=== PATIENT | male | born 1950 | race Caucasian/White ===

== ENCOUNTER 2019-12-07 12:39 | Outpatient (CLI) | payer MEDICARE, SELFPAY ==
--- NOTE | 2019-12-13 09:28 | WPDPFTINT ---
PFT Interpretation PFT Interpretation: DOS: 12/07/2019 REQUESTING: Ernst Jain REASON FOR TESTING: Shortness of breath PULMONARY FUNCTION TESTS The results are reliable and reproducible. He asked not to have albuterol as a bronchodilator due to negative side effects with his pacemaker/defibrillator. Spirometry: FEV1 is 88%, 2.73 L, normal. FVC is 81%, normal. FEV1% is normal. No bronchodilator was given per patient's request. Lung volumes: TLC 105%, normal. RV is increased at 131% consistent with mild air trapping. Airway resistance is 127%. Diffusion: DLCO is 1122%, normal. Flow volume loop: Nonspecific; inspiratory loop ends prematurely. IMPRESSION: Normal spirometry, mild air trapping, normal diffusion. No bronchodilator was given at the patient's request. Liseth Back MD
== END 2019-12-07 12:40 | disposition home or self-care (01) ==
PROVIDERS: PCP Family Medicine; Visit Provider Internal Medicine Critical Care Medicine
DX: R06.02 Shortness of breath (principal)
CPT/HCPCS: 94375; 94726; 94729

== ENCOUNTER 2020-01-09 12:50 | Outpatient (CLI) | payer MEDICARE, SELFPAY ==
--- NOTE | 2020-01-11 11:58 | WPDPFTINT ---
PFT Interpretation PFT Interpretation: DOS: 01/09/2020 REQUESTING: Ernst Jain REASON FOR TESTING: Asthma METHACHOLINE CHALLENGE This test was conducted per ATS guidelines. A previous study on 12/05/2019 showed normal spirometry, FEV1 88%. The patient was exposed to sequentially increasing doses of methacholine in the usual manner. Level 1 - saline Level 2 - 0.025 mg Level 3 - 0.25 mg Level 4 - 2.5 mg Level 5 - 10 mg Level 6 - 25 mg The test was stopped after the 6th and final dose of methacholine, 25 mg. There was not a decrease of 20% in the FEV1. There was a 26% decrease in the LMA12-46% after the final dose. This drop is not considered significant. Flows returned to normal after bronchodilator was administered. IMPRESSION: This is a negative methacholine challenge. The patient did not have a significant drop in FEV1 with testing. The best use for a methacholine challenge is to rule out asthma. Clinical correlation is advised. Liseth Back MD
== END 2020-01-09 12:51 | disposition home or self-care (01) ==
PROVIDERS: PCP Family Medicine; Visit Provider Family Medicine
DX: R05 Cough (principal)
CPT/HCPCS: 94070; J7674

== ENCOUNTER → 2021-01-14 17:43 | Outpatient (CLI) | payer MEDICARE, SELFPAY ==
--- NOTE | ~2021-01-14 | XR_ITS ---
XR lumbar spine 2-3V DATE: 01/14/2021 18:20 INDICATION: Back pain, radiculopathy TECHNIQUE: AP, lateral, coned lateral lumbosacral views COMPARISON: 03/18/2016 lumbar spine 05/06/2016 MR lumbar spine FINDINGS: Diffuse osteopenia. Diffuse idiopathic skeletal hyperostosis of the lower thoracic and upper lumbar spine. Moderate degenerative disease at L1-2 and mild degenerative disc disease of the remaining lumbar and lumbosacral levels. There is prominent degenerative change at the apophyseal joints at L4-5 and L5-S1, with associated gr alber 1 anterolisthesis at L4-5. No fracture or bone destruction. The lower thoracic and lumbar pedicles are intact. Sacroiliac joints are intact. IMPRESSION: Diffuse osteopenia Mild to moderate degenerative disc disease Prominent degenerative change at the lower lumbar and lumbosacral apophyseal joints with associated g rade 1 anterolisthesis at L4-5 Reviewed, dictated and finalized at location A. IMPRESSION: Diffuse osteopenia Mild to moderate degenerative disc disease Prominent degenerative change at the lower lumbar and lumbosacral apophyseal letty ints with associated grade 1 anterolisthesis at L4-5
== END ==
PROVIDERS: PCP Family Medicine; Visit Provider Family Medicine
DX: M54.16 Radiculopathy, lumbar region (principal); M85.88 Other specified disorders of bone density and structure, other site; M51.36 Other intervertebral disc degeneration, lumbar region; M43.16 Spondylolisthesis, lumbar region
CPT/HCPCS: 72100

== ENCOUNTER 2021-03-21 12:35 | Outpatient (CLI) | payer MEDICARE, SELFPAY ==
--- NOTE | ~2021-03-21 | US_ITS ---
EXAMINATION: US carotid duplex BI DATE: 03/21/2021 13:24 INDICATION: Carotid stenosis TECHNIQUE: Grayscale, color Doppler, and pulsed Doppler images of the cervical carotid arteries were obtained. The degree of vessel stenosis is placed in one of the following categories: normal, <50%, 5 0-69%, >=70% but less than near-occlusion, near-occlusion, or total occlusion. Note that percent sten osis relative to normal distal artery lumen diameter is indirectly measured from velocity measurement s as described by Matthew, et al. Radiology 2003; 229:340-346. Notes: Normal: Peak systolic velocity <125 centimeters/sec and no plaque <50%. Peak systolic velocity <125 ( EDV <40; ICA/CCA PSV ratio <2.0; used these factors only a tandem lesions or low cardiac output or co ntralateral disease) 50-69 %: PSV 125-230 (EDV 40-100; ratio 2-4) >= 70% but less than near occlusion: PSV greater than 230 (EDV > 100; ratio> 4.0) Near Occlusion: PSV that is variable; markedly narrowed lumen Occlusion: Absent flow on color/spectral Doppler and no lumen on jones scale. COMPARISON: None. FINDINGS: RIGHT: The right common carotid artery (CCA) peak systolic velocity (PSV) is 82 cm/s. The right internal car otid artery (ICA) PSV is 93 cm/s. The right ICA end-diastolic velocity (EDV) is 10 cm/s. The right IC A/CCA PSV ratio is 1.1. The external carotid artery (ECA) PSV is 97 cm/s. There is antegrade flow in the right vertebral artery. LEFT: The left CCA PSV is 76 cm/s. The left ICA PSV is 89 cm/s. The left ICA EDV is 26 cm/s. The left ICA/C CA PSV ratio is 1.2. The ECA PSV is 122 cm/s. There is antegrade flow in the left vertebral artery. IMPRESSION: 1. Less than 50% stenosis in the right internal carotid artery by sonographic criteria. 2. Less than 50% stenosis in the left internal carotid artery by sonographic criteria. Reviewed, dictated and finalized at location B. IMPRESSION: 1. Less than 50% stenosis in the right internal carotid artery by sonographic halley mckinley. 2. Less than 50% stenosis in the left internal carotid artery by sonographic cholo woody.
== END 2021-03-21 12:36 | disposition home or self-care (01) ==
LOC: ANHIMG 12:37
PROVIDERS: PCP Family Medicine; Visit Provider Family Medicine
DX: I65.23 Occlusion and stenosis of bilateral carotid arteries (principal)
CPT/HCPCS: 93880

== ENCOUNTER → 2021-04-26 09:05 | Outpatient (CLI) | payer MEDICARE, SELFPAY ==
[2021-04-26 17:10] LABS: SARS-CoV-2 RNA PCR Negative
== END ==
PROVIDERS: PCP Family Medicine; Visit Provider Family Medicine
DX: R68.89 Other general symptoms and signs (principal); Z20.822 Contact with and (suspected) exposure to COVID-19
CPT/HCPCS: C9803; U0003; U0005

== ENCOUNTER → 2022-09-09 15:58 | Outpatient (CLI) | payer MEDICARE, SELFPAY ==
--- NOTE | ~2022-09-09 | XR_ITS ---
EXAM: XR wrist LT min 3V DATE: 09/09/2022 16:15 HISTORY: no injury wrist pain for 1 week . COMPARISON: None available. FINDINGS: Normal mineralization. No fracture or dislocation. No lytic or blastic lesion. Scattered m ild degenerative changes, typical of osteoarthritis, most evident at the radial carpal joint, triscap he joint and trapezium metacarpal joint. No erosion or periosteal change. Vascular calcifications. 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 Reviewed, dictated and finalized at location K.
== END ==
PROVIDERS: PCP Family Medicine; Visit Provider Family Medicine
DX: M19.032 Primary osteoarthritis, left wrist (principal)
CPT/HCPCS: 73110

== ENCOUNTER 2022-12-12 17:30 | Emergency (ER) | payer MEDICARE, SELFPAY ==
--- NOTE | ~2022-12-12 | CT_ITS ---
EXAMINATION: CT brain wo con DATE: 12/12/2022 17:39 INDICATION: Slurred speech. TECHNIQUE: Computed tomography (CT) of the head was performed without intravenous contrast. The mA wa s adjusted according to patient size. Iterative reconstruction technique was employed. The dose-lengt h product was 681.00 mGy-cm. COMPARISON: None FINDINGS: There is an old infarct in right frontal lobe. There are old infarcts involving the bilater al thalami and basal ganglia. There are scattered areas of low attenuation in the cerebral white briana er. There is no intracranial hemorrhage, acute infarction, or abnormal intracranial mass lesion. The ventricles are normal in size. There is mild mucosal thickening in the paranasal sinuses. There are l ikely changes of ocular lens replacement surgeries. The mastoid air cells are normal. IMPRESSION: 1. Old infarcts involving the right frontal lobe and bilateral thalami and basal ganglia. I called th is result to Dr. Horan. 2. Mild nonspecific cerebral white matter disease, which likely represents chronic small vessel ische max disease. Reviewed, dictated and finalized at location E. IMPRESSION: 1. Old infarcts involving the right frontal lobe and bilateral thalami and basa l ganglia. I called this result to Dr. Horan. 2. Mild nonspecific cerebral white matter disease, which likely represents feeder operator tootie small vessel ischemic disease.
--- NOTE | ~2022-12-12 | XR_ITS ---
EXAMINATION: XR chest 1V portable DATE: 12/12/2022 18:07 INDICATION: Cerebrovascular accident. Slurred speech. TECHNIQUE: A single frontal view of the chest was obtained. COMPARISON: Chest 2 views 06/08/2019 FINDINGS: There is no pneumonia, pleural effusion, or pneumothorax. Cardiomegaly is noted. There is a left chest pacer with leads in right atrium, right ventricle, and coronary sinus. IMPRESSION: 1. Cardiomegaly. Reviewed, dictated and finalized at location E. IMPRESSION: 1. Cardiomegaly.
--- NOTE | ~2022-12-12 | CT_ITS ---
EXAMINATION: CTA brain carotid DATE: 12/12/2022 19:52 INDICATION: Transient ischemic attack. TECHNIQUE: Computed tomographic angiography (CTA) of the head was performed with 100 mL Omnipaque-350 intravenous contrast. CTA of the neck was performed with intravenous contrast. Automated exposure co ntrol and iterative reconstruction technique were employed. The dose-length product was 1264.66 mGy-c m. Maximum intensity projection and volume rendered 3D-reconstructions were created by the technologi st on a separate workstation. COMPARISON: Head CT 12/12/2022 FINDINGS: HEAD CTA: There are old infarcts involving the right frontal lobe and bilateral thalami and basal omkar glia. There are scattered areas of low attenuation in the cerebral white matter. There is no intracra nial hemorrhage, acute infarction, or abnormal intracranial mass lesion. The ventricles are normal in size. There are likely changes of ocular lens replacement surgeries. There is mucosal thickening in the nasal sinuses. The mastoid air cells are normal. Right vertebral artery is dominant. There is no significant stenosis of basilar artery. There is severe stenosis of left posterior cerebral artery at the junction of the P2 and P3 segments. The posterior communicating arteries are normal. There is no significant stenosis of the intracranial internal carotid arteries or anterior or middle cerebral ar teries. Anterior communicating artery is normal. There is no aneurysm. NECK CTA: There are no pathologically enlarged lymph nodes. There is no significant stenosis of the v ertebral arteries. There is plaque in the proximal right internal carotid artery. There are likely ch anges of left carotid endarterectomy. There is 0% stenosis of the proximal right internal carotid art maik relative to normal distal artery lumen diameter (NASCET criteria). There is 0% stenosis of the pr oximal left internal carotid artery relative to normal distal artery lumen diameter. There is moderat e cervical spondylosis IMPRESSION: 1. Old infarcts involving the right frontal lobe and bilateral thalami and basal ganglia. 2. Mild nonspecific cerebral white matter disease, which likely represents chronic small vessel ische max disease. 3. Severe stenosis of left posterior cerebral artery at the junction of the P2 and P3 segments. 4. 0% stenosis of the proximal internal carotid arteries relative to normal distal artery lumen diame ters (NASCET criteria). Reviewed, dictated and finalized at location E. IMPRESSION: 1. Old infarcts involving the right frontal lobe and bilateral thalami and basa l ganglia. 2. Mild nonspecific cerebral white matter disease, which likely represents animal care giver tootie small vessel ischemic disease. 3. Severe stenosis of left posterior cerebral artery at the junction of the P2 and P3 segments. 4. 0% stenosis of the proximal internal carotid arteries relative to normal dis evelin artery lumen diameters (NASCET criteria).
--- NOTE | 2022-12-12 17:32 | ECG_ITS ---
Measurements Intervals [place] Rate: 70 P: [place]: 0 QRS: -81 QRSD: 149 T: 81 QT: 434 QTc: 469 Interpretive Statements ELECTRONIC VENTRICULAR PACEMAKER NO FURTHER INTERPRETATION IS POSSIBLE ATYPICAL ECG NO PREVIOUS ECG AVAILABLE FOR COMPARISON Electronically Signed On 12-12-2022 20:40:01 CDT by Pa Liu D.O.
--- NOTE | 2022-12-12 17:45 | ECG_ITS ---
Measurements Intervals [place] Rate: 70 P: [place]: 0 QRS: -81 QRSD: 152 T: 85 QT: 442 QTc: 478 Interpretive Statements ELECTRONIC VENTRICULAR PACEMAKER NO FURTHER INTERPRETATION IS POSSIBLE ATYPICAL ECG NO PREVIOUS ECG AVAILABLE FOR COMPARISON Electronically Signed On 12-15-2022 13:00:13 CDT by Pa Liu D.O.
[2022-12-12 17:50] LABS: Basophils Percent Auto 0.3 % (0.2-1.2); Eosinophils Absolute Auto 0.1 K/mm3 (0-0.3); Eosinophils Percent Auto 0.7 % (0-4.4); Hematocrit 42.5 % (42.0-52.0); Hemoglobin 13.5 g/dL (14.0-18.0); Immature Granulocyte Absolute 0.03 K/mm3 (0.00-0.031); Immature Granulocyte Percent A 0.3 % (0-0.5); Lymphocytes Absolute Auto 1.38 K/mm3 (0.9-3.2); Lymphocytes Percent Auto 14.5 % (18.3-44.2); Mean Corpuscular HGB Conc 31.8 g/dl (32-36); Mean Platelet Volume 9.6 fl (7.4-10.4); Monocytes Absolute Auto 0.6 K/mm3 (0.1-0.6); Monocytes Percent Auto 5.8 % (2.6-8.5); Neutrophils Absolute Auto 7.5 K/mm3 (1.3-6.7); Neutrophils Percent Auto 78.4 % (45.5-73.1); Platelet Count Result 195 k/mm3 (150-375); Red Blood Count 4.83 M/mm3 (4.6-6.20); Red Cell Distribution Width 14.7 % (11.5-14.5); White Blood Count 9.5 K/mm3 (4.5-10.0)
[2022-12-12 18:05] LABS: Alanine Aminotransferase 20 U/L (6-50); Albumin Level 4.2 g/dL (3.5-5.1); Alkaline Phosphatase 52 U/L (38-126); Anion Gap 7 mmol/L (8-16); Aspartate Amino Transferase 23 U/L (17-59); Bilirubin,Total 0.7 mg/dL (0.2-1.3); Blood Urea Nitrogen 21 mg/dL (9-20); Calcium 9.1 mg/dL (8.4-10.2); Carbon Dioxide 29 mmol/L (22-30); Chloride 103 mmol/L (98-107); Estimated CRCL calculation 65 ml/min; Estimated Glomerular Filt Rate > 60; Glucose 118 mg/dL (65-110); Potassium 4.5 mmol/L (3.4-5.0); Sodium 139 mmol/L (137-145)
[2022-12-12 18:07] LABS: INR 1.2; Prothrombin Time 15.4 Seconds (11.1-14.7)
[2022-12-12 18:08] LABS: Partial Thromboplastin Time 30.7 SECONDS (22.3-36.8)
[2022-12-12 18:17] LABS: Troponin I < 0.012 ng/mL (0.000-0.034)
[2022-12-12 19:09] VITALS: BP 142/67; PULSE 70; RESP 19; O2SAT 97
--- NOTE | 2022-12-12 20:24 | ED.NEUROSD ---
HPI - Neuro Symptoms/Deficit General Chief Complaint: Suspected CVA Stated Complaint: slurred speech Time Seen by Provider: 12/12/22 18:24 History of Present Illness HPI Narrative: 72-year-old male presented the emergency department for evaluation for 30 minutes of garbled speech. Patient does have a prior history of CVA approximately 20 years ago and did have multiple TIAs between December and March 21. Patient reports he had a carotid endarterectomy at [facility] and April 2021. Patient does take aspirin and Eliquis and reports he has been compliant with his medications. Patient states that the symptoms today lasted approximately 30 minutes and then resolved. Patient reports some associated lightheaded and dizziness but denied any associated numbness or weakness. Patient reports he is back to his baseline. Related Data Home Medications Medication Instructions Recorded Confirmed aspirin 81 mg tablet,delayed 81 mg PO DAILY 06/08/19 09/24/22 release (Aspir-) metoprolol succinate 50 mg 75 mg PO DAILY 06/08/19 09/24/22 tablet,extended release 24 hr nitroglycerin 0.4 mg sublingual 0.4 mg sublingual Q5M PRN 06/08/19 09/24/22 tablet vitamin B complex (B 1 tablet PO DAILY 06/08/19 09/24/22 Complex-Vitamin B12 tablet) sacubitril 24 mg-valsartan 26 mg 1 tablet PO BID 02/27/20 09/24/22 tablet (Entresto) cetirizine 10 mg tablet (Zyrtec) 10 mg PO QHS 11/07/20 09/24/22 clindamycin phosphate 1 % topical 1 applic topical DAILY 09/24/22 09/24/22 solution ketoconazole 2 % shampoo 1 applic topical 3XW 09/24/22 09/24/22 omeprazole 20 mg capsule,delayed 20 mg PO DAILY 09/24/22 09/24/22 release vibegron 75 mg tablet (Gemtesa) 75 mg PO DAILY 09/24/22 09/24/22 Allergies Allergy/AdvReac Type Severity Reaction Status Date / Time FLECAINIDE ACETATE (Generic Allergy Unknown Unknown Uncoded 12/10/22 11:40 Allergy) TABACOR BETA HARVINDER Allergy Unknown Unknown Uncoded 12/10/22 11:40 Review of Systems Review of Systems: All systems reviewed & are unremarkable except as noted in HPI and below PMFSH Past Medical History Medical History BPH w/o urinary obs/LUTS CAD in [place] artery Cataract Chronic atrial fibrillation Chronic congestive heart failure Chronic low back pain without sciatica Dyslipidemia Essential (primary) hypertension GERD (gastroesophageal reflux disease) History of stroke 04/2001 and 12/2020 Hx of erectile dysfunction Hx of gout Hypogonadism in male IDDM (insulin dependent diabetes mellitus) Nocturia OAB (overactive bladder) Recurrent UTI (urinary tract infection) 10/08/2017 Rhinitis Seasonal allergies 02/09/19 Stroke 04/2001 and 12/2020 Surgical History Surgical History H/O discectomy L4-L5 09/2016 H/O removal of cyst (~10/2020) History of appendectomy age 3 - 1956 History of coronary artery stent placement 08/2017 History of intraocular lens implant 2004 - right, 2006 - left Hx of cataract surgery 12/2006 & 11/10/03 Family History Family History Mother Family history of coronary artery disease Social History Social History Smoking status: Never smoker Second hand tobacco smoke exposure: No Alcohol intake: current Alcohol use details: consumes 3 beers/wine rarely Substance use: never Substance use type: does not use Lack of Transportation: No Lack of Food: Never True Current Housing: I Have Housing Concerned About Future Housing: No Difficulty Paying Gas/Electric Bills: No Difficulty Paying for Meds: No Currently Unemployed: No Education: Associate Degree Difficulty w/ Childcare or Family Care: No Exam Narrative: APPEARANCE: Well appearing, no pain, no distress, well-nourished. HEAD: norm
[2022-12-12 21:14] VITALS: BP 140/94; PULSE 70; RESP 16; O2SAT 98
== END 2022-12-12 21:14 | disposition home or self-care (01) ==
PROVIDERS: Emergency Provider Emergency Medicine; PCP Family Medicine
DX: G45.9 Transient cerebral ischemic attack, unspecified (principal); I25.10 Atherosclerotic heart disease of native coronary artery without angina pectoris; I48.20 Chronic atrial fibrillation, unspecified; E78.5 Hyperlipidemia, unspecified; I10 Essential (primary) hypertension; Z86.73 Personal history of transient ischemic attack (TIA), and cerebral infarction without residual deficits
CPT/HCPCS: 36415; 70450; 70496; 70498; 71045; 80053; 84484; 85025; 85610; 85730; 93005; 99284; Q9967

== ENCOUNTER 2023-08-19 14:43 | Outpatient (CLI) | payer MEDICARE, SELFPAY ==
--- NOTE | ~2023-08-19 | XR_ITS ---
EXAMINATION: XR lumbar spine min 4V DATE: 08/19/2023 15:11 INDICATION: Low back pain TECHNIQUE: Anteroposterior, lateral, and bilateral oblique views of the lumbar spine, and cone-down l ateral view of the lumbosacral junction were obtained. COMPARISON: 01/14/2021 FINDINGS: There are 4 mm of anterolisthesis of L4 on L5. The vertebral body heights are maintained. T here is no fracture. There is unchanged moderate loss of intervertebral disc space height throughout the lumbar spine. There is severe facet joint osteoarthritis of the mid and lower lumbar spine. IMPRESSION: 1. Moderate lumbar spondylosis without acute findings or significant interval change. Reviewed, dictated and finalized at location F. IMPRESSION: 1. Moderate lumbar spondylosis without acute findings or significant interval halley dorado.
== END 2023-08-19 14:44 ==
PROVIDERS: PCP Family Medicine; Visit Provider Family Medicine
DX: M79.661 Pain in right lower leg (principal); M47.896 Other spondylosis, lumbar region
CPT/HCPCS: 72110

== ENCOUNTER 2023-08-27 13:51 | Outpatient (CLI) | payer MEDICARE, SELFPAY ==
--- NOTE | ~2023-08-27 | XR_ITS ---
EXAM: XR hip RT 2V w AP pelvis DATE: 08/27/2023 14:07 HISTORY: M79.651 - Pain in right HIP, RADIATES TO GROIN. NKI . COMPARISON: None available. FINDINGS: Normal mineralization. No fracture or dislocation. No lytic or blastic lesion. Lumbar dege nerative disc disease. Mild bilateral superior hip joint space narrowing. Heterotopic bone adjacent t o the left greater trochanter. Mild scattered pelvic and hip enthesopathy. No erosion or periosteal c hange. Diffuse vascular calcifications. IMPRESSION: Mild bilateral hip osteoarthritis. Reviewed, dictated and finalized at location K.
== END 2023-08-27 13:52 | disposition home or self-care (01) ==
PROVIDERS: PCP Family Medicine; Visit Provider Family Medicine
DX: M16.0 Bilateral primary osteoarthritis of hip (principal)
CPT/HCPCS: 73502

== ENCOUNTER 2023-09-04 13:53 | Outpatient (CLI) | payer MEDICARE, SELFPAY ==
--- NOTE | ~2023-09-04 | US_ITS ---
EXAMINATION: US venous doppler LE RT DATE: 09/04/2023 14:55 INDICATION: Right lower limb pain TECHNIQUE: Grayscale ultrasound images without and with compression and Doppler ultrasound images of the right lower extremity veins were obtained. COMPARISON: None. FINDINGS: The visualized portions of right common femoral vein, profunda (deep) femoral vein, femoral vein, pop liteal vein, peroneal trunk, posterior tibial veins, peroneal veins, gastrocnemius vein and greater s aphenous vein outflow are patent. IMPRESSION: 1. No deep venous thrombosis in the right lower limb. Reviewed, dictated and finalized at location A.
== END 2023-09-04 13:54 | disposition home or self-care (01) ==
PROVIDERS: PCP Family Medicine; Visit Provider Family Medicine
DX: M79.651 Pain in right thigh (principal); R10.31 Right lower quadrant pain
CPT/HCPCS: 93971

== ENCOUNTER 2024-02-09 12:29 | Emergency (ER) | payer MEDICARE, SELFPAY ==
[2024-02-09] VITALS (11 sets, daily range): BP systolic 109–130; BP diastolic 43–78; PULSE 70–72; RESP 14–24; TEMP 37–39.6; O2SAT 94–100
--- NOTE | ~2024-02-09 | XR_ITS ---
XR chest 1V portable Ordering provider: America Lawler PA-C History: 74 years Male with . ams, weakness UNABLE TO SIT UPRIGHT SLUMPING OVER . Comparison: December 12, 2022 FINDINGS: MEDIASTINUM: The cardiac silhouette is not enlarged. Left tripolar pacemaker. LUNGS: No infiltrates, effusions or pneumothorax. OTHER: No free air under the diaphragm. IMPRESSION: No acute cardiopulmonary pathology Reviewed, dictated and finalized at location A.
--- NOTE | ~2024-02-09 | CT_ITS ---
CT thoracic lumbar w con Ordering provider: America Lawler PA-C History: . post op infection . Comparison: None. Technique: CT thoracic and lumbar spine without contrast. Automated exposure control and iterative r econstruction technique were employed. The dose-length product was 1095.74 mGy-cm. 100 mL Omnipaque 350 was given IV. FINDINGS: VERTEBRAE: Normal height and alignment. No subluxation or visible acute fracture. Degenerative change s of the spine. Postoperative changes in the lumbar spine extending from L2 to L4. DISC SPACES: Well maintained. Facet joint disease at the level of L4-L5. PARASPINOUS SOFT TISSUES: Collection measuring 8.9 x 2.1 x 2.2 cm. is seen posteriorly extending from L1-L2 down to lower L4 more on the right side. Air is also seen in the surgical bed bilaterally whic h may be due to infection or postoperative change. No significant enhancement seen around the collect ion. Clinical correlation and further evaluation advised. IMPRESSION: Postoperative changes in the lumbar area with collection more to the right which may be atelectasis o r postoperative change. Clinical correlation and follow-up advised. Reviewed, dictated and finalized at location A. IMPRESSION: Postoperative changes in the lumbar area with collection more to the right whic h may be atelectasis or postoperative change. Clinical correlation and follow-u p advised.
--- NOTE | 2024-02-09 12:41 | ECG_ITS ---
Test Date: 2024-02-09 13:01:16 Measurements Intervals [place] Rate: 70 P: 0 IA: 0 QRS: -87 QRSD: 141 T: 66 QT: 469 QTc: 507 Interpretive Statements ELECTRONIC VENTRICULAR PACEMAKER BASELINE ARTIFACT- I, III, AVR, AVL, AVF, V1-V3 NO FURTHER INTERPRETATION IS POSSIBLE ATYPICAL ECG No previous ECG available for comparison Electronically Signed On 02-09-2024 13:20:19 CDT by Pa Liu D.O.
--- NOTE | 2024-02-09 12:43 | ED.FEVER ---
HPI - Fever General Chief Complaint: Fever <America Lawler PA-C - Last Filed: 02/09/24 12:51> Stated Complaint: tremors <America Lawler PA-C - Last Filed: 02/09/24 12:51> Time Seen by Provider: 02/09/24 15:24 <America Lawler PA-C - Last Filed: 02/09/24 12:51> Focused HPI: 74-year-old male with history of CAD, TIA, GERD, dyslipidemia, hypertension and recent spinal surgery at [facility] 3 weeks ago presents to the emergency department with his at bedside via EMS from [facility]. Patient's states that she was visiting the patient when he was very tremulous. She contacted the nurse came over and took the patient's vitals and was found to be very tachycardic. They contacted EMS and presented to the ED. The states the patient vomited a few days ago. He is reporting pain to his low back. The states that she knows he has a bedsore to the low back but is unsure if it is infected. Patient denies chest pain or shortness of breath, cough or congestion, dysuria or hematuria. Denies known drainage from the wound. Patient is demented at baseline per . GENERAL: Chronically ill-appearing HEAD: Normocephalic, atraumatic. CHEST: Clear to auscultation. ?No respiratory distress. BACK: Well-healing postoperative incision to the thoracic and lumbar spine with overlying Steri-Strips, no erythema, fluctuation, induration, no purulence. Unable to visualize sacral wound due to positioning in triage HEART: Regular rate and rhythm.? Patient screened in triage and initial orders placed.? ?Additional care and disposition to be based upon?diagnostic testing and treatment. <America Lawler PA-C - Last Filed: 02/09/24 12:51> History of Present Illness HPI Narrative: This patient is a 74-year-old gentleman presents emergency department with chief complaint of not feeling well patient has had some vomiting also has concern for possible fever and infection patient recently had spinal surgery at [facility] 3 weeks ago and was discharged to [facility]. The family reported that there has been a small area of a bedsore that has developed in his sacral region the report that the incision has looked well there is still a single staple left in the wound but no drainage or redness at the site. <Elias Ding MD - Last Filed: 02/09/24 18:23> Related Data Home Medications: Home Medications Medication Instructions Recorded Confirmed aspirin 81 mg tablet,delayed 81 mg PO DAILY 06/08/19 02/04/24 release (Aspir-) metoprolol succinate 50 mg 75 mg PO DAILY 06/08/19 02/04/24 tablet,extended release 24 hr nitroglycerin 0.4 mg sublingual 0.4 mg sublingual Q5M PRN 06/08/19 02/04/24 tablet vitamin B complex (B 1 tablet PO DAILY 06/08/19 02/04/24 Complex-Vitamin B12 tablet) sacubitril 24 mg-valsartan 26 mg 1 tablet PO BID 02/27/20 02/04/24 tablet (Entresto) cetirizine 10 mg tablet (Zyrtec) 10 mg PO QHS 11/07/20 02/04/24 clindamycin phosphate 1 % topical 1 applic topical DAILY 09/24/22 02/04/24 solution ketoconazole 2 % shampoo 1 applic topical 3XW 09/24/22 02/04/24 omeprazole 20 mg capsule,delayed 20 mg PO DAILY 09/24/22 02/04/24 release vibegron 75 mg tablet (Gemtesa) 75 mg PO DAILY 09/24/22 02/04/24 tadalafil 5 mg tablet 5 mg PO DAILY 03/11/23 02/04/24 fluticasone propionate 50 1 spray intranasal DAILY 09/10/23 02/04/24 mcg/actuation nasal spray,suspension (Flonase Allergy Relief) pen needle, diabetic 32 gauge x #1,200 ea 09/10/23 02/04/24 5/32 (BD Meka 2nd Gen Pen Needle) insulin glargine 100 unit/mL (3 40 unit subcut QPM 09/30/23 02/04/24 mL) subcutaneous pen (Lantus Solostar U-100 Insulin) clindamycin phosphate 1 % topical topical PRN 11/25/23 02/04/24 gel finasteride 5 mg tablet mg PO DAILY 11/25/23 02/04/24 metronidazole 1 % topical gel topical DAILY 11/25/23 02/04/24 <America Lawler PA-C - Last Filed: 02/09/24 12:51> Allergies/Adverse Reacti
[2024-02-09 13:26] LABS: Basophils Percent Auto 0.1 % (0.2-1.2); Hematocrit 35.2 % (42.0-52.0); Hemoglobin 10.8 g/dL (14.0-18.0); Immature Granulocyte Absolute 0.02 K/mm3 (0.00-0.031); Immature Granulocyte Percent A 0.3 % (0-0.5); Lymphocytes Absolute Auto 0.23 K/mm3 (0.9-3.2); Lymphocytes Percent Auto 2.9 % (18.3-44.2); Mean Corpuscular HGB Conc 30.7 g/dl (32-36); Mean Corpuscular Hemoglobin 27.6 pg (26-34); Mean Corpuscular Volume 89.8 fl (80-100); Mean Platelet Volume 9.5 fl (7.4-10.4); Monocytes Absolute Auto 0.1 K/mm3 (0.1-0.6); Monocytes Percent Auto 1.6 % (2.6-8.5); Neutrophils Absolute Auto 7.6 K/mm3 (1.3-6.7); Neutrophils Percent Auto 95.1 % (45.5-73.1); Platelet Count Result 256 k/mm3 (150-375); Red Blood Count 3.92 M/mm3 (4.6-6.20); Red Cell Distribution Width 17.2 % (11.5-14.5); White Blood Count 7.9 K/mm3 (4.5-10.0)
[2024-02-09 13:37] LABS: INR 1.7; Prothrombin Time 20.4 Seconds (11.1-14.7)
[2024-02-09 13:44] LABS: Lactic Acid Reflex 7.7 mmol/L (0.7-2.0)
[2024-02-09 13:46] LABS: Albumin Level 3.7 g/dL (3.5-5.1); Alkaline Phosphatase 126 U/L (38-126); Anion Gap 15 mmol/L (4-12); Aspartate Amino Transferase 35 U/L (17-59); Bilirubin,Total 1.4 mg/dL (0.2-1.3); Blood Urea Nitrogen 29 mg/dL (9-20); CRP 7.2 mg/dL (<1.0); Calcium 8.9 mg/dL (8.4-10.2); Carbon Dioxide 21 mmol/L (22-30); Chloride 91 mmol/L (98-107); Estimated Glomerular Filt Rate > 60; Glucose 317 mg/dL (65-110); Lipase 202 U/L (23-300); Potassium 4.6 mmol/L (3.4-5.0); Sodium 127 mmol/L (137-145)
[2024-02-09 13:48] LABS: Anisocytosis 1+; Platelet Estimate Adequate (Adequate); Schistocytes None Seen
[2024-02-09 13:53] LABS: Alanine Aminotransferase 28 U/L (6-50)
[2024-02-09 14:09] LABS: Influenza A QL RT-PCR Negative (Negative); Influenza B QL RT-PCR Negative (Negative); RSV RNA, RT-PCR Negative (Negative); SARS-CoV-2 RNA PCR Positive (Negative)
[2024-02-09 14:21] LABS: Erythrocyte Sedimentation Rate 125 mm/hr (0-20)
[2024-02-09 14:23] LABS: Add Urine Microscopic? YES; Appearance Urine Clear (Clear); Bacteria Urine None Seen /hpf; Bilirubin Urine Negative (Negative); Blood Urine Negative (Negative); Color Urine Dark Yellow (Yellow); Glucose Urine UA 3+ mg/dL (Negative); Ketones Urine Trace mg/dL (Negative); Leukocyte Esterase Ur Negative LEU/UL (Negative); Nitrate Urine Negative (Negative); Protein Urine Trace mg/dL (Negative); RBC Urine 0-2 /hpf (0-2); Specific Grav Ur 1.027 (1.001-1.035); Squamous Epithelial Cell Urine None Seen /hpf (Few); WBC Urine 0-5 /hpf (0-3)
[2024-02-09] MEDS: LACTATED RINGERS 1,000 ML 999 ML IV CONT (14:30)
--- NOTE | 2024-02-09 14:47 | PC.NURSE ---
Family at bedside notified that pt is covid positive. Family given N95 masks.
[2024-02-09] MEDS: SODIUM CHLORIDE 0.9% IV 1,000 ML 999 ML IV CONT ×2 (15:15→16:18)
--- NOTE | 2024-02-09 15:23 | PC.NURSE ---
Charge nurse informed no ED MD has signed up for pt, pt meets Sepsis criteria.
[2024-02-09] MEDS: CEFEPIME 2 GM/NS 50 ML 2 GM/50 ML BAG IVPB (16:16)
[2024-02-09 16:22] LABS: Reflex Lactic Acid Yes or No Add Lactic
[2024-02-09] MEDS: VANCOMYCIN 1,250 MG/NS 250 ML 1,250 MG/250 ML BAG 166.67 MG IVPB (17:16)
[2024-02-09 17:21] LABS: Lactic Acid 2.5 mmol/L (0.7-2.0)
[2024-02-09 17:33] LABS: Beta-Hydroxybutyrate/Acetoacetate 1.32 mmol/L (0.02-0.27)
--- NOTE | 2024-02-09 18:18 | PC.NURSE ---
Attempted report x1 to [facility]. Nurse to call back for report.
--- NOTE | 2024-02-09 18:30 | PC.NURSE ---
Report called to PEDRO Mckeon at [facility] - room 6300. All questions answered at this time. [facility] to transport pt from [place] to [facility].
[2024-02-09] MEDS: VANCOMYCIN 1,000 MG/NS 250 ML 1,000 MG/250 ML BAG 250 MG IVPB (18:58)
== END 2024-02-09 19:04 | disposition short-term general hospital (02) ==
PROVIDERS: Physician Assistant; Emergency Provider Emergency Medicine; PCP Family Medicine
DX: A41.9 Sepsis, unspecified organism (principal); U07.1 COVID-19; E11.65 Type 2 diabetes mellitus with hyperglycemia; L89.159 Pressure ulcer of sacral region, unspecified stage; Z98.890 Other specified postprocedural states; I25.10 Atherosclerotic heart disease of native coronary artery without angina pectoris; I48.20 Chronic atrial fibrillation, unspecified; I10 Essential (primary) hypertension; E78.5 Hyperlipidemia, unspecified; N40.0 Benign prostatic hyperplasia without lower urinary tract symptoms; N32.81 Overactive bladder; K21.9 Gastro-esophageal reflux disease without esophagitis; M10.9 Gout, unspecified; Z95.5 Presence of coronary angioplasty implant and graft; Z95.0 Presence of cardiac pacemaker; Z96.1 Presence of intraocular lens; Z98.42 Cataract extraction status, left eye; Z98.41 Cataract extraction status, right eye; Z86.73 Personal history of transient ischemic attack (TIA), and cerebral infarction without residual deficits; Z87.440 Personal history of urinary (tract) infections; Z79.82 Long term (current) use of aspirin; Z79.01 Long term (current) use of anticoagulants; Z79.4 Long term (current) use of insulin; Z79.84 Long term (current) use of oral hypoglycemic drugs; Z79.899 Other long term (current) drug therapy
CPT/HCPCS: 36415; 71045; 72129; 72132; 80053; 81001; 82010; 83605; 83690; 85025; 85610; 85652; 85730; 86140; 87040; 87181; 87637; 93005; 96361; 96365; 96366; 99285; J0692; J3370; J7030; J7120; Q9967